=== PATIENT | female | born 1940 | race Caucasian/White ===

== ENCOUNTER 2018-09-21 13:32 | Emergency (ER) | payer MEDICARE ==
[~2018-09-21] VITALS: Ht 152.4 cm; Wt 83.0 kg
[2018-09-21] MEDS ORDERED: FAMOTIDINE 20 MG TABLET PO ONE (14:30)
--- NOTE | 2018-09-21 14:57 | NUR ---
PT A&OX4, RESP EVEN & UNLABORED, SPEECH CLEAR. DIFFUSE RED RASH TO LEGS, ARMS, TORSO. STATES SHE STARTED BACTRIM-DS YESTERDAY (PRESCRIBED JENNIFER QUAN, FILLED 09/16/18 AT [facility]). SULFA LISTED IN [facility] ALLERGY LIST. ADVISED PT TO NOTIFY HER DOCTOR & THE PHARMACY.
--- NOTE | 2018-09-21 15:55 | NUR ---
AMBULATORY TO & FROM [facility] W/OUT INCIDENT, USED OWN CANE, GAIT STEADY.
[2018-09-21] MEDS ORDERED: HTN (16:25)
[2018-09-21] MEDS ORDERED: CHOLESTEROL (16:25)
[2018-09-21 16:36] VITALS: BP 117/70
== END 2018-09-21 16:39 | disposition home or self-care (01) ==
LOC: ED 16:33
DX: R21 Rash and other nonspecific skin eruption (principal); T37.0X5A Adverse effect of sulfonamides, initial encounter
CPT/HCPCS: 99284; J7512; Q0177

== ENCOUNTER 2018-11-05 09:46 | Emergency (ER) | payer MEDICARE ==
[~2018-11-05] VITALS: Ht 154.9 cm; Wt 85.6 kg
[2018-11-05 12:14] VITALS: BP 173/82
== END 2018-11-05 12:39 | disposition home or self-care (01) ==
LOC: ED 11:54
DX: S90.32XA Contusion of left foot, initial encounter (principal); I10 Essential (primary) hypertension; E78.00 Pure hypercholesterolemia, unspecified; X58.XXXA Exposure to other specified factors, initial encounter; Y93.89 Activity, other specified; Y92.89 Other specified places as the place of occurrence of the external cause; Y99.8 Other external cause status
CPT/HCPCS: 36415; 80053; 83880; 85025; 99284

== ENCOUNTER 2020-04-26 14:28 | Emergency (ER) | payer MEDICARE ==
[~2020-04-26] VITALS: Ht 154.9 cm; Wt 90.0 kg
[~2020-04-26 14:28] MED LIST: AMLO-150 PO; CHOLESTEROL; ESCI10TA10 PO; HTN; LEVO137T2 PO; LOVA20TA2 PO
[2020-04-26] MEDS ORDERED: OXYcodone/APAP 5/325MG TABLET PO ONE (15:30)
--- NOTE | 2020-04-26 16:01 | NUR ---
US AT BS, PT LAYING ON GURNEY AWAKE & COMFORTABLE AT REST, RESPONDS APPROP TO STAFF, NAD UNLESS LT FOOT PALPATED, PT VOIDED IN BEDPAN- NO OTHER NEEDS AT THIS TIME, CALL LIGHT WITHIN REACH.
[2020-04-26 16:06] LABS: BASOPHILS % (AUTO) 2 % (0-1); EOSINOPHILS % (AUTO) 2 % (1-7); LYMPHOCYTES % (AUTO) 23 % (22-44); MEAN CORPUSCULAR HEMOGLOBIN 29.8 pg (27.0-34.8); MEAN CORPUSCULAR HGB CONC 32.8 g/dL (32.4-35.8); MEAN PLATELET VOLUME 9.1 fL (7.4-10.4); MONOCYTES % (AUTO) 9 % (2-9); NEUTROPHILS % (AUTO) 64 % (42-75); PLATELET COUNT 286 x10^3/uL (130-400); RED BLOOD COUNT 4.85 x10^6/uL (3.82-5.3); RED CELL DISTRIBUTION WIDTH 15.3 % (9.6-15.2)
[2020-04-26 16:10] LABS: MD NO
[2020-04-26] MEDS ORDERED: OXYcodone/APAP 5/325MG TABLET ONE (16:11)
[2020-04-26 16:13] LABS: ALBUMIN 3.4 g/dL (3.4-5.0); ANION GAP 1 mmol/L (5-15); CALCIUM 8.7 mg/dL (8.5-10.1); CHLORIDE 109 mmol/L (98-107); CREATININE 0.81 mg/dL (0.55-1.02)
--- NOTE | 2020-04-26 16:15 | NUR ---
PT UNABLE TO COMPLETE US D/T PAIN DURING EXAM, MEDICATED PER EMAR, US WILL ATTEMPT EXAM AGAIN AFTER MEDICATION TAKES EFFECT.
[2020-04-26 16:23] LABS: FREE T4 (FREE THYROXINE) 1.09 ng/dL (0.76-1.46)
--- NOTE | 2020-04-26 17:03 | NUR ---
US RETURNED TO BS, PT LAYING ON GURNEY AWAKE & MORE COMFORTABLE DURING EXAM, RESPONDS APPROP TO STAFF, NO NEEDS AT THIS TIME, MORIAH AT BS, CALL LIGHT WITHIN REACH.
--- NOTE | 2020-04-26 18:02 | NUR ---
PT CONTINUES LAYING ON GURNEY AWAKE & COMFORTABLE, RESPONDS APPROP TO STAFF, NAD & STATES PAIN LEVEL IS "STILL BETTER THAN MY USUAL", PUREWICK PLACED FOR PT COMFORT/FREQ VOIDS, CALL LIGHT WITHIN REACH.
--- NOTE | 2020-04-26 18:47 | NUR ---
REPORT GIVEN TO ALEXANDER
--- NOTE | 2020-04-26 18:50 | NUR ---
REPORT RECIEVED FROM MINDY CAVAZOS. ASSUMED CARE
--- NOTE | 2020-04-26 18:54 | NUR ---
PT RESTING IN [facility]. WATCHING TV. NO NEEDS AT THIS TIME. VSS
[2020-04-26] MEDS ORDERED: NICOTINE 14MG/24 HR PATCH.TD24 ONE (19:52)
[2020-04-26] MEDS ORDERED: NICOTINE 14MG/24 HR PATCH.TD24 TD ONE (20:00)
--- NOTE | 2020-04-26 20:16 | NUR ---
[facility] [phone]
--- NOTE | 2020-04-26 20:32 | NUR ---
SPOKE WITH WILL, CARDIOVASCULAR US. HE IS CALLING THE VASCULAR US TECH TO COME PEFORM ARTERIAL US ON PT
--- NOTE | 2020-04-26 21:16 | NUR ---
CHAIR SPRING ASSEMBLER IN WITH PT AT THIS TIME
[2020-04-26 21:49] VITALS: BP 126/74
--- NOTE | 2020-04-26 22:24 | NUR ---
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 Pt dressed and in WC. DC paperwork given and gone over with patient. Pt states understanding. Pt instructed to f/u with PCP. Pt home with son.
== END 2020-04-26 22:27 | disposition home or self-care (01) ==
LOC: ED 17:04
DX: M25.572 Pain in left ankle and joints of left foot (principal); I10 Essential (primary) hypertension; E78.00 Pure hypercholesterolemia, unspecified
CPT/HCPCS: 36415; 80048; 82040; 84439; 84443; 84550; 85025; 99285

== ENCOUNTER 2020-10-11 10:54 | Emergency (ER) | payer MEDICARE ==
[~2020-10-11] VITALS: Ht 154.9 cm; Wt 85.0 kg
--- NOTE | 2020-10-11 12:14 | NUR ---
lion tamer: Pt ambulatory to room from lobby at this time.
--- NOTE | 2020-10-11 12:55 | NUR ---
PT TO ROOM 26 W/ C/O L FOOT PAIN, REDNESS, HEAT, SWELLING, AND BUMPS TO LLE. STATES IT STARTED 4 MONTHS AGO AND HAS BEEN PROGRESSIVELY GETTING WORSE. PT DENIES HX DM. PT RESTING ON GURNEY. NADN. MONITORS APPLIED. VSS. WARM BLANKET PROVIDED. CALL LIGHT IN REACH.
--- NOTE | 2020-10-11 13:26 | NUR ---
PT RESTING ON GURNEY. NADN. RAYMUNDO.
[2020-10-11 13:28] LABS: BASOPHILS % (AUTO) 2 % (0-1); EOSINOPHILS % (AUTO) 3 % (1-7); LYMPHOCYTES % (AUTO) 16 % (22-44); MEAN CORPUSCULAR HGB CONC 33.3 g/dL (32.4-35.8); MEAN PLATELET VOLUME 9.2 fL (7.4-10.4); MONOCYTES % (AUTO) 11 % (2-9); NEUTROPHILS % (AUTO) 69 % (42-75); PLATELET COUNT 281 x10^3/uL (130-400); RED BLOOD COUNT 4.93 x10^6/uL (3.82-5.3); RED CELL DISTRIBUTION WIDTH 16.3 % (9.6-15.2)
[2020-10-11 13:39] LABS: ALBUMIN 3.5 g/dL (3.4-5.0); CHLORIDE 105 mmol/L (98-107)
[2020-10-11 13:44] LABS: ALANINE AMINOTRANSFERASE 18 U/L (12-78); ALKALINE PHOSPHATASE 89 U/L (45-117); BILIRUBIN,TOTAL 0.4 mg/dL (0.2-1.0); CREATININE 0.57 mg/dL (0.55-1.02); TOTAL PROTEIN 7.2 g/dL (6.4-8.2)
[2020-10-11 13:57] LABS: ANION GAP 4 mmol/L (5-15)
--- NOTE | 2020-10-11 14:23 | NUR ---
ERP DR. AMBROSE AT BEDSIDE FOR RE-EVAL.
--- NOTE | 2020-10-11 14:32 | NUR ---
ERP DR. AMBROSE AWARE OF PT BP. TO REASSESS BP PRIOR TO DC PT WAS TEARFUL AND CRYING IN ROOM.
--- NOTE | 2020-10-11 14:46 | NUR ---
PT REMAINS EXTREMELY UPSET AND BP REMAINS ELEVATED. ERP DR. AMBROSE AWARE. ATTEMPTED TO TAKE PT BP. SLIGHTLY DECREASED. PER ERP OKAY TO DC.
[2020-10-11 14:50] VITALS: BP 195/92
== END 2020-10-11 15:00 | disposition home or self-care (01) ==
LOC: ED 14:45
DX: R60.0 Localized edema (principal); L03.116 Cellulitis of left lower limb; I10 Essential (primary) hypertension; E78.00 Pure hypercholesterolemia, unspecified; F17.200 Nicotine dependence, unspecified, uncomplicated
CPT/HCPCS: 36415; 80053; 83880; 85025; 99285